=== PATIENT | female | born 1950 ===

== ENCOUNTER 2022-02-24 12:51 | Outpatient (CLI) | payer OTHER | END 2022-02-24 12:52 | disposition home or self-care (01) | LOC: RAD 12:51 | PROVIDERS: ATTEND General Practice | DX: M18.9 Osteoarthritis of first carpometacarpal joint, unspecified (principal) ==

== ENCOUNTER 2022-03-06 14:29 | Outpatient (CLI) | payer OTHER | END 2022-03-06 14:35 | disposition home or self-care (01) | LOC: RAD 14:29 | PROVIDERS: ATTEND General Practice | DX: M15.9 Polyosteoarthritis, unspecified (principal); J44.9 Chronic obstructive pulmonary disease, unspecified; J32.9 Chronic sinusitis, unspecified ==